=== PATIENT | female | born 1975 | race Caucasian/White ===

== ENCOUNTER 2017-05-02 20:40 | Observation (INO) | payer MEDICAID ==
[~2017-05-02 20:40] MED LIST: BIRTH CONTROL
[2017-05-02] MEDS ORDERED: SODIUM CHLORIDE 0.9% FLUSH 5 ML FLUSH IV FLUSH PRN (20:45)
--- NOTE | 2017-05-02 22:07 | HHI.HP ---
HPI Service [facility] Primary Care Physician Unknown Admission Diagnosis Diagnoses: Travel History International Travel<30 Days: No Contact w/Intl Traveler <30 Da: No History of Present Illness Written by Samia Arreola, acting as scribe for [[employer]] on 05/02/17 at 22:01. 42 y/o with a history of Migraines presented to the ED with complaints of weakness and numbness in her left arm. At about 12pm she states she was taking a shower and was washing her hair when her left arm went limp and numb. She states it lasted for about an hour and then went away. She say she has had numbness around lips and once in a while tunnel vision and dizziness in the past , but not today. She denies any chest pain, sob, fever, chills, nausea, vomiting , dysuria or headaches. Review of Systems Except as stated in HPI: all other systems reviewed are Neg Past Family Social History Past Medical History Migraines Past Surgical History Lens replacement C section x 2 Reported Medications Reported Meds & Active Scripts Active Reported [ Control] Allergies: Coded Allergies: No Known Drug Allergies (Verified Allergy, Unknown, 05/02/17) Active Ordered Medications Current Medications Medications (Trade) Dose Ordered Sig/Bianca Route Start Time Stop Time Status Last Admin (NS Flush) 2 ml BID IV FLUSH 05/02/17 21:00 (NS Flush) 2 ml UNSCH PRN IV FLUSH 05/02/17 20:45 Family History Dad: pacemaker Mom: HLD Social History Tobacco use: Quit 18 years Alcohol use: Occasionally Illicit drug use: Denies Physical Exam Physical Exam GENERAL: This is a well-nourished, well-developed patient, in no apparent distress. SKIN: No rashes, ecchymoses or lesions. Cool and dry. HEAD: Atraumatic. Normocephalic. No temporal or scalp tenderness. EYES: Pupils equal round and reactive. Extraocular motions intact. No scleral icterus. No injection or drainage. ENT: Nose without bleeding, purulent drainage or septal hematoma.. Airway patent. NECK: Trachea midline. No JVD or lymphadenopathy. Supple, nontender, no meningeal signs. CARDIOVASCULAR: Regular rate and rhythm without murmurs, gallops, or rubs. RESPIRATORY: Clear to auscultation. Breath sounds equal bilaterally. No wheezes , rales, or rhonchi. GASTROINTESTINAL: Abdomen soft, non-tender, nondistended. No hepato-splenomegaly , or palpable masses. No guarding. MUSCULOSKELETAL: Extremities without clubbing, cyanosis, or edema. No joint tenderness, effusion, or edema noted. No calf tenderness. NEUROLOGICAL: Awake and alert. Cranial nerves II through XII intact. Motor and sensory grossly within normal limits. Five out of 5 muscle strength in all muscle groups. Normal speech. Laboratory labs at [place] reviewed Imaging head ct done at [place] reviewed Assessment and Plan Problem List: (1) Transient ischemic attack (TIA) ICD Code: G45.9 Status: Acute Assessment and Plan 42 y/o with a history of Migraines presented to the ED with complaints of weakness and numbness in her left arm. TIA, also r/o MS Head CT reviewed and unremarkable -Consult neurology -MRA and MRI ordered -Carotid US ordered DVT prophylaxis: SCDs This note was transcribed by souleymaneibchepe [Samia Arreola]. I, Dr. Gato Loja personally performed the history, physical exam, and medical decision making; and confirmed the accuracy of the information in the transcribed note. Authenticated by Dr. Gato Loja on 05/02/17 at 22:01. Discussed Condition With Patient and Samia Rubio May 02, 2017 22:07 Gato Loja MD May 03, 2017 10:30
[2017-05-02] MEDS: SODIUM CHLORIDE 0.9% FLUSH 5 ML FLUSH IV FLUSH SCH (22:30)
[2017-05-02 22:34] VITALS: BP 112/65; PULSE 92; RESP 20; TEMP 97.8; O2SAT 98
[2017-05-02 22:45] VITALS: PULSE 96
--- NOTE | 2017-05-02 23:27 | RADRPT ---
EXAM DATE/TIME: 05/02/2017 22:39 [facility] COMPARISON: No previous studies available for comparison. INDICATIONS : TIA. MEDICAL HISTORY : Left arm numbness. Migraines. SURGICAL HISTORY : section. Lens replacement. ENCOUNTER: Initial ACUITY: 1 day PAIN SCORE: 0/10 LOCATION: Bilateral neck PEAK SYSTOLIC VELOCITIES (cm/sec): ICA/CCA RATIO: Right: 2.0 Left: 1.4 ICA: Right: 171 Left: 121 CCA: Right: 84 Left: 115 ECA: Right: 93 Left: 98 VERTEBRAL: Right: 36 antegrade Left: 68 antegrade Elevated flow velocities and ICA/CCA ratios have been found to correlate with increased degrees of vessel stenosis, calculated as percentage of diameter relative to a normal segment of distal ICA/CCA FINDINGS: RIGHT CAROTID: No significant stenosis is visualized. The waveforms are within normal limits. LEFT CAROTID: No significant stenosis is visualized. The waveforms are within normal limits. VERTEBRAL ARTERIES: Antegrade flow is seen in both vertebral arteries. MISCELLANEOUS: None. CONCLUSION: 1. Mild elevated velocity in the right internal carotid without spectral widening suggests 50-70% desi nosis. 2. Normal hemodynamic profile on the left. Andrey Bhagat MD on May 02, 2017 at 23:24 Board Certified Radiologist. This report was verified electronically.
[2017-05-03] VITALS (7 sets, daily range): BP systolic 107–115; BP diastolic 53–66; PULSE 79–104; RESP 16–20; TEMP 97.4–98.5; O2SAT 96–97
--- NOTE | 2017-05-03 01:10 | RADRPT ---
EXAM DATE/TIME: 05/03/2017 00:25 [facility] COMPARISON: No previous studies available for comparison. INDICATIONS : Left upper extremity numbness. MEDICAL HISTORY : None. SURGICAL HISTORY : section. ENCOUNTER: Initial ACUITY: 1 day PAIN SCORE: 0/10 LOCATION: cranial TECHNIQUE: Multiplanar, multisequence MRI of the brain was performed without contrast. FINDINGS: CEREBRUM: The ventricles are normal for age. No evidence of midline shift, mass lesion, hemorrhage or acute in farction. No extraaxial fluid collections are seen. The pituitary gland and suprasellar cistern are normal in configuration. WHITE MATTER: No significant signal abnormalities are seen in the white matter. POSTERIOR FOSSA: The cerebellum and brainstem are intact. The 4th ventricle is midline. The cerebellopontine angle is unremarkable. The cerebellar tonsils are normal in position. DIFFUSION IMAGING: No focal areas of restricted diffusion are seen. No evidence of acute infarction. EXTRACRANIAL: The visualized portions of the orbits and paranasal sinuses are unremarkable. CONCLUSION: Negative MRI of the brain without contrast. Andrey Bhagat MD on May 03, 2017 at 1:08 Board Certified Radiologist. This report was verified electronically.
--- NOTE | 2017-05-03 01:12 | RADRPT ---
EXAM DATE/TIME: 05/03/2017 00:25 [facility] COMPARISON: No previous studies available for comparison. INDICATIONS : Left upper extremity weakness, numbness. MEDICAL HISTORY : None. SURGICAL HISTORY : section. ENCOUNTER: Initial ACUITY: 1 day PAIN SCORE: 0/10 LOCATION: cranial Please note a normal MRA of the brain does not entirely exclude the possibility of a small aneurysm, nor the possibility of distal intracranial vessel disease. TECHNIQUE: 3D time of flight MRA was performed. Source images, multiplanar STS MIP, and 3D volume MIP reconstru ctions were reviewed. FINDINGS: There is excellent visualization of the major intracranial arteries out to the second-order branch ve ssels. There is no evidence for aneurysm, vessel truncation or stenosis, and no evidence for vascula r malformation. Flow is seen in the anterior communicating artery and the right PCOM. The left post erior cerebral artery arises from the anterior circulation. CONCLUSION: Negative MRA of the [place]. Andrey Bhagat MD on May 03, 2017 at 1:09 Board Certified Radiologist. This report was verified electronically.
[2017-05-03 07:21] LABS: HDL CHOLESTEROL 44.4 MG/DL (40.0-60.0)
[2017-05-03 08:50] LABS: FREE T4 1.12 NG/DL (0.76-1.46)
[2017-05-03] MEDS: SODIUM CHLORIDE 0.9% FLUSH 5 ML FLUSH IV FLUSH SCH (10:02)
--- NOTE | 2017-05-03 15:01 | HHI.PR ---
Subjective Remarks 42 y/o with a history of Migraines presented to the ED with complaints of weakness and numbness in her left arm. At about 12pm she states she was taking a shower and was washing her hair when her left arm went limp and numb. She states it lasted for about an hour and then went away. She say she has had numbness around lips and once in a while tunnel vision and dizziness in the past , but not today. She denies any chest pain, sob, fever, chills, nausea, vomiting , dysuria or headaches. Has had MRIs and MRAs carotids all are stable We'll discontinue her control pill recommend that she take an aspirin AND A STATIN Needs follow-up with her primary care physician needs an outpatient echocardiogram Objective Vitals Vital Signs Date Time Temp Pulse Resp B/P Pulse Ox O2 Delivery O2 Flow Rate FiO2 05/03/17 12:00 97.4 90 20 115/66 96 05/03/17 08:00 97.5 96 20 109/64 97 05/03/17 07:31 96 05/03/17 04:51 98.1 87 18 107/58 97 05/03/17 04:31 79 05/02/17 22:45 96 05/02/17 22:34 97.8 92 20 112/65 98 Other Results Laboratory Tests Test 05/03/17 06:21 Phosphorus Level 3.2 MG/DL Magnesium Level 2.0 MG/DL Triglycerides Level 156 MG/DL Cholesterol Level 166 MG/DL LDL Cholesterol 90 MG/DL HDL Cholesterol 44.4 MG/DL Cholesterol/HDL Ratio 3.73 RATIO Free Thyroxine 1.12 NG/DL Thyroid Stimulating Hormone 2.580 uIU/ML 3rd Gen Imaging Last Impressions Head Magnetic Resonance Angiography 05/02/17 0000 Signed Impressions: Service Date/Time: April 00:25 - CONCLUSION: Negative MRA of the [place]. Andrey Bhagat MD Carotid Artery Ultrasound 05/02/17 0000 Signed Impressions: Service Date/Time: Tuesday, May 02, 2017 22:39 - CONCLUSION: 1. Mild elevated velocity in the right internal carotid without spectral widening suggests 50-70%% stenosis. 2. Normal hemodynamic profile on the left. Andrey Bhagat MD Brain MRI 05/02/17 0000 Signed Impressions: Service Date/Time: April 00:25 - CONCLUSION: Negative MRI of the brain without contrast. Andrey Bhagat MD Objective Remarks GENERAL: Awake alert and oriented talkative and cooperative SKIN: Warm and dry. HEAD: Atraumatic. Normocephalic. EYES: Pupils equal and round. No scleral icterus. No injection or drainage. Extraocular muscles grossly intact ENT: No nasal bleeding or discharge. Mucous membranes pink and moist. Tongue is midline NECK: Trachea midline. No JVD. CARDIOVASCULAR: Regular rate and rhythm. S1 and S2 no S3 or S4 no heave or thrill or rub or gallop RESPIRATORY: No accessory muscle use. Clear to auscultation. Breath sounds equal bilaterally. GASTROINTESTINAL: Abdomen soft, non-tender, nondistended. Hepatic and splenic margins not palpable. MUSCULOSKELETAL: Extremities without clubbing, cyanosis, or edema. No obvious deformities. NEUROLOGICAL: Awake and alert. No obvious cranial nerve deficits. Motor grossly within normal limits. Five out of 5 muscle strength in the arms and legs. Normal speech. PSYCHIATRIC: Appropriate mood and affect; insight and judgment normal. Medications and IVs Inpatient Medications Aspirin (Ecotrin Ec) 81 mg DAILY PO ; Start 05/03/17 at 16:00 IV Flush (NS Flush) 2 ml UNSCH PRN IV FLUSH FLUSH AFTER USING IV ACCESS; Start 05/02/17 at 20:45 Current Medications IV Flush (NS Flush) 2 ml BID IV FLUSH Last administered on 05/03/17t 10:02; Start 05/02/17 at 21:00 IV Flush (NS Flush) 2 ml UNSCH PRN IV FLUSH FLUSH AFTER USING IV ACCESS; Start 05/02/17 at 20:45 Aspirin (Ecotrin Ec) 81 mg DAILY PO ; Start 05/03/17 at 16:00 Urinary Catheter: No Vascular Central Line Catheter: No A/P Problem List: (1) Transient ischemic attack (TIA) ICD Code: G45.9 Status: Acute (2) Migraine ICD Code: G43.909 Status: Acute (3) Dyslipidemia ICD Code: E78.5 Status: Acute Assessment and Plan 42 y/o with a history of Migraines presented to the ED with complaints of weakness and numbness in her left arm. TIA, also r/o MS Head CT reviewed and unremarkable -Consult neurology -MRA and MRI ordered -Carotid US ordered DVT prophylaxis: SCDs. Needs outpatient echocardiogram Continue on aspirin 81 mg continue on statin Inocencio Burns DO May 03, 2017 15:01
[2017-05-03] MEDS ORDERED: ASPIRIN EC 81 MG TABEC PO SCH (16:00)
[2017-05-03 16:02] LABS: HEMOGLOBIN A1b 1.6 %; HEMOGLOBIN Ao 87.2 %; HEMOGLOBIN LA1C 1.6 %; HEMOGLOBIN P3 3.1 %
[2017-05-03] MEDS ORDERED: PRAV40TA2 PO (16:27)
[2017-05-03] MEDS ORDERED: ASPI-99 PO (16:27)
--- NOTE | 2017-05-03 16:28 | HHI.DCPOC ---
Discharge Care Plan Diagnosis: (1) Dyslipidemia (2) Migraine (3) Transient ischemic attack (TIA) Additional Problems TIA VS MIGRAINE HEADACHE Goals to Promote Your Health * To prevent worsening of your condition and complications * To maintain your health at the optimal level Directions to Meet Your Goals Take your medications as prescribed Follow your dietary instruction Follow activity as directed Keep your appointments as scheduled Take your immunizations and boosters as scheduled If your symptoms worsen call your PCP, if no PCP go to Urgent Care Center or Emergency Room Smoking is Dangerous to Your Health. Avoid second hand smoke Call the 24-hour hour crisis hotline for domestic abuse at Inocencio Burns DO May 03, 2017 16:28
--- NOTE | 2017-05-03 16:30 | HHI.DS ---
Discharge Summary Admission Date May 02, 2017 at 20:50 Discharge Date: May 03, 2017 Admitting Diagnosis TIA VS MIGRAINE (1) Transient ischemic attack (TIA) ICD Code: G45.9 (2) Migraine ICD Code: G43.909 Diagnosis: Secondary (3) Dyslipidemia ICD Code: E78.5 Diagnosis: Principal Procedures Laboratory Tests Test 05/03/17 06:21 Phosphorus Level 3.2 MG/DL Magnesium Level 2.0 MG/DL Triglycerides Level 156 MG/DL Cholesterol Level 166 MG/DL LDL Cholesterol 90 MG/DL HDL Cholesterol 44.4 MG/DL Cholesterol/HDL Ratio 3.73 RATIO Free Thyroxine 1.12 NG/DL Thyroid Stimulating Hormone 2.580 uIU/ML 3rd Gen Brief History - From Admission 42 y/o with a history of Migraines presented to the ED with complaints of weakness and numbness in her left arm. At about 12pm she states she was taking a shower and was washing her hair when her left arm went limp and numb. She states it lasted for about an hour and then went away. She say she has had numbness around lips and once in a while tunnel vision and dizziness in the past , but not today. She denies any chest pain, sob, fever, chills, nausea, vomiting , dysuria or headaches. Significant Findings Laboratory Tests Test 05/03/17 06:21 Triglycerides Level 156 MG/DL (42-150) Imaging Last Impressions Head Magnetic Resonance Angiography 05/02/17 0000 Signed Impressions: Service Date/Time: April 00:25 - CONCLUSION: Negative MRA of the [place]. Andrey Bhagat MD Carotid Artery Ultrasound 05/02/17 0000 Signed Impressions: Service Date/Time: Tuesday, May 02, 2017 22:39 - CONCLUSION: 1. Mild elevated velocity in the right internal carotid without spectral widening suggests 50-70%% stenosis. 2. Normal hemodynamic profile on the left. Andrey Bhagat MD Brain MRI 05/02/17 0000 Signed Impressions: Service Date/Time: April 00:25 - CONCLUSION: Negative MRI of the brain without contrast. Andrey Bhagat MD PE at Discharge GENERAL: Awake alert and oriented talkative and cooperative SKIN: Warm and dry. HEAD: Atraumatic. Normocephalic. EYES: Pupils equal and round. No scleral icterus. No injection or drainage. Extraocular muscles grossly intact ENT: No nasal bleeding or discharge. Mucous membranes pink and moist. Tongue is midline NECK: Trachea midline. No JVD. CARDIOVASCULAR: Regular rate and rhythm. S1 and S2 no S3 or S4 no heave or thrill or rub or gallop RESPIRATORY: No accessory muscle use. Clear to auscultation. Breath sounds equal bilaterally. GASTROINTESTINAL: Abdomen soft, non-tender, nondistended. Hepatic and splenic margins not palpable. MUSCULOSKELETAL: Extremities without clubbing, cyanosis, or edema. No obvious deformities. NEUROLOGICAL: Awake and alert. No obvious cranial nerve deficits. Motor grossly within normal limits. Five out of 5 muscle strength in the arms and legs. Normal speech. PSYCHIATRIC: Appropriate mood and affect; insight and judgment normal. Hospital Course 42 y/o with a history of Migraines presented to the ED with complaints of weakness and numbness in her left arm. At about 12pm she states she was taking a shower and was washing her hair when her left arm went limp and numb. She states it lasted for about an hour and then went away. She say she has had numbness around lips and once in a while tunnel vision and dizziness in the past , but not today. She denies any chest pain, sob, fever, chills, nausea, vomiting , dysuria or headaches. Has had MRIs and MRAs carotids all are stable We'll discontinue her control pill recommend that she take an aspirin AND A STATIN Needs follow-up with her primary care physician needs an outpatient echocardiogram Pt Condition on Discharge: Good Discharge Disposition: Discharge Home Discharge Time: > 30 minutes Discharge Instructions DIET: Follow Instructions for: Heart Healthy Diet Speech Therapy-Diet Recommends: Regular Activities you can perform: Regular-No Restrictions New Medications: Pravastatin (Pravastatin) 40 Mg Tab 40 MG PO DAILY Cholesterol Management #[address] (Adult Aspirin EC Low Strength) 81 Mg Tabec 81 MG PO DAILY Blood Clot Prevention #120 Ref 4 TAB Discontinued Medications: ([ Control]) Inocencio Burns DO May 03, 2017 16:30
--- NOTE | 2017-05-03 17:11 | MB ---
cc: VIVIENNE KIM M.D. DATE OF CONSULTATION: 05/03/2017. REASON FOR CONSULTATION: Possible TIA. HISTORY OF PRESENT ILLNESS: The patient a pleasant 42-year-old woman with a history of migraines who normally takes Tylenol. She follows with a doctor in [place]. She comes in because she had a sudden onset for an unknown length of time, maybe minutes, of a sudden onset of weakness and inability to feel her left arm not involving the face or the leg. She did not have any facial droop, double vision, loss of vision, weakness in a leg or loss of awareness. She did have a mild headache but she has had headaches before however this has never occurred before. The symptoms resolved and she came in to have an evaluation. PAST MEDICAL HISTORY: She has a past medical history of migraines but only takes [id number] Tylenol. She has tried in the past Imitrex but it did not make her feel well. PAST SURGICAL HISTORY: She has also a surgical history of lens replacement and x2. HOME MEDICATIONS: Oral contraceptive pills. ALLERGIES: NONE REPORTED. FAMILY HISTORY: Pacemaker in the father. Hyperlipidemia in the mother. SOCIAL HISTORY: She quit smoking over 18 years ago. Occasional alcohol. No drugs. PHYSICAL EXAMINATION: VITAL SIGNS: Temperature is 98.5, heart rate 104, respiratory rate 16, blood pressure 109/53. NECK: The neck is supple. No carotid bruits. HEART: Regular. NEUROLOGICAL EXAMINATION: She is awake, alert and oriented and fluent. Pupils reactive. Visual vasquez are full. Face symmetrical. Tongue midline. Motor - there is no drift or leg lag. Cerebellar testing is normal. Toes are downgoing. Reflexes are 2 to 3+. SENSORY: Normal. GAIT: She has been ambulating around the unit. IMAGING STUDIES: MRI of the brain did not show anything acute. Carotid ultrasound - there is some right internal carotid artery MRA [place] was negative. IMPRESSION: Possible complicated migraine but also a TIA in the differential. A 42-year-old woman on oral contraceptive pills. I did discuss with her and recommended stopping the oral contraceptives. I would recommend a baby aspirin. I would also go ahead and recommend an outpatient Holter as well as a hypercoagulable panel. Have her follow up with her family physician for the blood work. She is stable at this point in time from my perspective and can be discharged home. Also, she should have an outpatient echocardiogram. Thank you for allowing me to participate in her care. MD CIERRA Barry/CECILE /3:44 PM /4:59 PM
[2017-05-08 11:53] LABS: PHOS SERINE AB IGA LESS THAN 20 U/mL (<20); PHOS SERINE AB IGG LESS THAN 10 U/mL (<10); PHOS SERINE AB IGM LESS THAN 25 U/mL (<25)
[2017-05-09 03:53] LABS: BETA2 GLYCOPROTEIN I AB IGA LESS THAN 9.0 SAU (< OR = 20)
== END 2017-05-03 17:04 | disposition home or self-care (01) ==
LOC: NEDDLT 20:40 → NEPFCDU 20:50
PROVIDERS: ADMIT Hospitalist; ATTEND Hospitalist
DX: G45.9 Transient cerebral ischemic attack, unspecified (principal); G43.909 Migraine, unspecified, not intractable, without status migrainosus; Z87.891 Personal history of nicotine dependence; E78.5 Hyperlipidemia, unspecified; Z79.82 Long term (current) use of aspirin; Z79.899 Other long term (current) drug therapy
CPT/HCPCS: 70450; 70496; 70498; 70544; 70551; 80048; 80061; 80307; 81241; 83036; 83735; 84100; 84439; 84443; 84702; 85025; 85303; 85610; 85730; 86146; 86147; 86148; 93005; 93880; 99285; G0378; Q9967; 85306; 99281